=== PATIENT | male | born 2000 | race Two or more races ===

== ENCOUNTER 2020-01-02 04:58 | Emergency (ER) | payer SELFPAY ==
[~2020-01-02] VITALS: Ht 162.6 cm; Wt 64.5 kg
[2020-01-02] MEDS ORDERED: ONDANSETRON PF 4 MG/2 ML VIAL. IVP ONE (05:30)
[2020-01-02] MEDS ORDERED: IV NORMAL SALINE 1000ML BAG 1,000 ML IV ONE (05:30)
--- NOTE | 2020-01-02 05:32 | PHYS DOC ---
Past Medical History Past Medical History: No Pertinent History (AIMEERAY Nitish BOLES) Past Surgical History: No Surgical History (AIMEERAY Nitish BOLES) Smoking Status: Never Smoker Alcohol Use: Occasionally Social History Narrative: LAST USED [facility] YESTERDAY MORNING (RAY ENGLISH I ) General Adult EDM: Chief Complaint: ABDOMINAL PAIN HPI: HPI: Patient is a 19 year old male with no past medical or past surgical history presents with a chief complaint of abdominal pain. Patient states abdominal pain started last night. Is located in the periumbilical region. Patient states pain occasionally radiates radiates up to the epigastric region. Patient has associated nausea and vomiting. He denies any diarrhea. Patient denies any shortness of breath cough fever or chills. (AIMEERAY Nitish BOLES) Review of Systems: Review of Systems: Constitutional: Denies fever or chills. [] Eyes: Denies change in visual acuity. [] HENT: Denies nasal congestion or sore throat. [] Respiratory: Denies cough or shortness of breath. [] Cardiovascular: Denies chest pain or edema. [] GI: As above abdominal pain positive nausea positive vomiting : Denies dysuria. [] Musculoskeletal: Denies back pain or joint pain. [] Integument: Denies rash. [] Neurologic: Denies headache, focal weakness or sensory changes. [] Endocrine: Denies polyuria or polydipsia. [] Lymphatic: Denies swollen glands. [] Psychiatric: Denies depression or anxiety. [] (AIMEERAY Nitish BOLES) Heart Score: Risk Factors: Risk Factors: DM, Current or recent (<one month) smoker, HTN, HLP, family history of CAD, obesity. Risk Scores: Score 0 - 3: 2.5% MACE over next 6 weeks - Discharge Home Score 4 - 6: 20.3% MACE over next 6 weeks - Admit for Clinical Observation Score 7 - 10: 72.7% MACE over next 6 weeks - Early Invasive Strategies (AIMEERAY Nitish BOLES) Current Medications: Current Medications Medications (Trade) Dose Ordered Sig/Paige Start Time Stop Time Status Last Admin Dose Admin Ondansetron HCl (Zofran) 4 mg 1X ONCE 01/02/20 05:30 01/02/20 05:31 UNV Sodium Chloride 1,000 ml @ 1,000 mls/hr 1X ONCE 01/02/20 05:30 01/02/20 06:29 UNV (RAY ENGLISH DO) Physical Exam: PE: Constitutional: Well developed, well nourished, no acute distress, non-toxic appearance. [] HENT: Normocephalic, atraumatic, bilateral external ears normal, oropharynx moist, no oral exudates, nose normal. [] Eyes: PERRLA, EOMI, conjunctiva normal, no discharge. [] Neck: Normal range of motion, no tenderness, supple, no stridor. [] Cardiovascular:Heart rate regular rhythm, no murmur [] Lungs & Thorax: Bilateral breath sounds clear to auscultation [] Abdomen: Tender to palpation periumbilical. No rebound or guarding Skin: Warm, dry, no erythema, no rash. [] Back: No tenderness, no CVA tenderness. [] Extremities: No tenderness, no cyanosis, no clubbing, ROM intact, no edema. [] Neurologic: Alert and oriented X 3, normal motor function, normal sensory function, no focal deficits noted. [] Psychologic: Affect normal, judgement normal, mood normal. [] (RAY ENGLISH DO) Current Patient Data: Vital Signs: Vital Signs Date Time Temp Pulse Resp B/P (MAP) Pulse Ox O2 Delivery O2 Flow Rate FiO2 01/02/20 05:17 98.0 50 18 98 Room Air 98.0 (RAY ENGLISH DO) EKG: EKG: [] (RAY ENGLISH DO) Radiology/Procedures: Radiology/Procedures: [] (RAY ENGLISH DO) Course & Med Decision Making: Course & Med Decision Making Pertinent Labs and Imaging studies reviewed. (See chart for details) [] After initial evaluation CBC CMP lipase UA and ct abd/pel order. Treatment with Zofran and IV Fluids. Patient signed out to Dr Santos disposition pending re-evaluation and labs/radiology. (RAY ENGLISH DO) Course & Med Decision Making Assumed care of patient from Dr. English. At time of checkout labs and CT are pending. Labs are normal. CT shows some free fluid in the abdomen. This is atypical for meals though sometimes benign. Given his lower pelvic pain and free fluid will do an ultrasound to rule out torsion. Torsion is negative. Patient's test results and vitals while in the ED were fully reviewed and discu ssed with the patient. Patient is stable and at this time does not need admission to the hospital. We have discussed strict return precautions and the importance of following up with their Primary Care Physician. Patient stated understanding and was given an opportunity to ask any questions. Patient is in agreement with plan. (LEN AYALA MD) Course & Med Decision Making Incorrectly assigned to patient's chart. Dr. English signed out to Dr. Ayala. I was not involved in care of patient. (ENDY SANTOS DO) Dragon Disclaimer: Dragon Disclaimer: This electronic medical record was generated, in whole or in part, using a voice recognition dictation system. (RAY ENGLISH DO) Departure Departure Impression: Primary Impression: Abdominal pain Additional Impression: Nausea & vomiting Disposition: 01 DC HOME SELF CARE/HOMELESS Condition: STABLE Patient Instructions: Abdominal Pain RAY ENGLISH DO Jan 02, 2020 05:32 LEN AYALA MD Jan 02, 2020 10:02 ENDY SANTOS DO Jan 04, 2020 00:41
[2020-01-02 05:44] VITALS: BP 112/56
[2020-01-02 05:45] LABS: BASO % 0 % (0-3); EOS # 0.3 x10^3/uL (0.0-0.7); EOS % 3 % (0-3); HEMATOCRIT 44.9 % (39.0-53.0); HEMOGLOBIN 15.4 g/dL (13.0-17.5); LYMPH # 2.7 x10^3/uL (1.0-4.8); LYMPH % 28 % (24-48); MEAN CORPUSCULAR HEMOGLOBIN 30 pg (25-35); MEAN CORPUSCULAR HGB CONC 34 g/dL (31-37); MEAN CORPUSCULAR VOLUME 86 fL (79-100); MONO # 0.6 x10^3/uL (0.0-1.1); MONO % 6 % (0-9); NEUT # 6.1 x10^3/uL (1.8-7.7); NEUT % 63 % (31-73); PLATELET COUNT 231 x10^3/uL (140-400); RED BLOOD COUNT 5.22 x10^6/uL (4.30-5.70); RED CELL DISTRIBUTION WIDTH 13.1 % (11.5-14.5); WHITE BLOOD COUNT 9.7 x10^3/uL (4.0-11.0)
[2020-01-02 05:58] LABS: CALCIUM 9.3 mg/dL (8.5-10.1); GFR 94.3; POTASSIUM 3.8 mmol/L (3.5-5.1)
[2020-01-02 06:04] LABS: ALBUMIN 4.6 g/dL (3.4-5.0); ALBUMIN/GLOBULIN RATIO 1.5 (1.0-1.7); TOTAL BILIRUBIN 0.5 mg/dL (0.2-1.0); TOTAL PROTEIN 7.6 g/dL (6.4-8.2)
[2020-01-02 07:32] LABS: BILIRUBIN,URINE NEGATIVE (NEG); CLARITY,URINE CLEAR; COLOR,URINE YELLOW; NITRITE,URINE NEGATIVE (NEG); PH,URINE 7.5 (<5.0-8.0); PROTEIN,URINE NEGATIVE (NEG-TRACE); UROBILINOGEN,URINE 0.2 mg/dL (0.2 mg/dL)
[2020-01-02] MEDS ORDERED: CONTRAST GIVEN. MC PRN (07:45)
[2020-01-02] MEDS ORDERED: IOHEXOL 240 MG/ML 50ML VIAL. PO ONE (07:45)
[2020-01-02] MEDS ORDERED: IOHEXOL 300 MG/ML 100ML VIAL. IV ONE (07:45)
[2020-01-02 08:02] LABS: BACTERIA,URINE 0 /HPF (0-FEW); RBC,URINE 0 /HPF (0-2)
--- NOTE | 2020-01-02 08:42 | RAD ---
PQRS Compliance Statement: One or more of the following individualized dose reduction techniques were utilized for this examination: 1. Automated exposure control 2. Adjustment of the mA and/or kV according to patient size 3. Use of iterative reconstruction technique CT abdomen/pelvis with contrast 01/02/2020 7:07 AM INDICATION: Right lower quadrant abdominal pain COMPARISON: None available TECHNIQUE: Multiple axial CT images of the abdomen and pelvis were obtained after the intravenous administration of 75 mL Omnipaque 300. Coronal and sagittal reformats are provided. FINDINGS: Lung bases are clear. Heart size is within normal limits. Liver, spleen, bilateral adrenal glands, pancreas and gallbladder are normal in appearance. Abdominal aorta is normal in course and caliber. There are no pathologically enlarged lymph nodes in abdomen and pelvis. There is no free intracranial air. Small large bowel are normal in caliber. Trace free fluid within the dependent pelvis. Appendix is normal in appearance. No bowel obstruction or inflammation. Kidneys enhance symmetrically. No suspicious renal mass. No hydronephrosis. No calculi are identified within the ureters or urinary bladder. Prostate and seminal vesicles are normal. No suspicious osseous abnormality is identified. IMPRESSION: No bowel obstruction or inflammation. Appendix is normal in appearance. Trace free fluid within the pelvis is abnormal, however no definite etiology is visualized by CT. Electronically signed by: Pebbles Romo MD (01/02/2020 8:39 AM) [id number]
--- NOTE | 2020-01-02 09:48 | RAD ---
TESTICULAR/SCROTUM History: Reason: pain, free fluid abd, rule out torsion / Spl. Instructions: / History: Comparison: CT January 02, 2020. Technique: Multiple grayscale, color flow Doppler and Doppler spectral analysis images of the scrotum are obtained. Findings: Right testicle measures 4.4 x 2.5 x 2.3 cm. Right testicle demonstrates normal parenchymal echogenicity. The right epididymis is unremarkable. Left testicle measures 3.8 x 2.8 x 2.0 cm. Left testicle demonstrates normal parenchymal echogenicity. The left epididymis is unremarkable. A few testicular calcifications bilaterally. Small bilateral hydroceles. Thick septation within the right hydrocele. No scrotal hyperemia or swelling. Doppler imaging demonstrates normal flow to both testicles, without evidence of torsion. IMPRESSION: 1. No evidence of testicular mass or torsion. 2. Small bilateral hydroceles with thickened septation on the right. Electronically signed by: Chris Mack DO (01/02/2020 9:45 AM) [id number]
== END 2020-01-02 10:11 | disposition home or self-care (01) ==
LOC: ER 04:58
DX: R10.33 Periumbilical pain (principal); R11.2 Nausea with vomiting, unspecified; R10.2 Pelvic and perineal pain
CPT/HCPCS: 36415; 74177; 76870; 80053; 81001; 83690; 85025; 96361; 96374; 99285; J2405; J7030; Q9966; Q9967